=== PATIENT | male | born 1990 | race Two or more races ===

== ENCOUNTER 2016-10-11 05:01 | Day surgery (SDC) | payer BC, OTHER ==
[2016-10-11] MEDS ORDERED: PREGABALIN 150 MG CAP PO ONE (06:00)
[2016-10-11] MEDS ORDERED: ACETAMINOPHEN 500 MG TAB PO ONE (06:00)
[2016-10-11] MEDS ORDERED: CLINDAMYCIN 900 MG/DEXTROSE 50 ML IV ONE (06:00)
[2016-10-11] MEDS ORDERED: LIDOCAINE 1% 5 ML SDV ONE (06:10)
[2016-10-11] MEDS ORDERED: BUPIVACAINE/EPI 0.25% 30 ML SDV ONE (06:50)
[2016-10-11] MEDS ORDERED: EPINEPHrine 30 MG/30 ML MDV ONE (06:51)
[2016-10-11] MEDS ORDERED: MIDAZOLAM 2 MG/2 ML VIAL ONE (07:02)
[2016-10-11] MEDS ORDERED: fentaNYL 250 MCG/5 ML INJ ONE (07:07)
[2016-10-11] MEDS ORDERED: PROPOFOL 200 MG/20 ML VIAL ONE (07:07)
[2016-10-11] MEDS ORDERED: PROPOFOL/EMULSION 500 MG/50 ML BOTTLE IV ONE ×2 (07:07→08:25)
[2016-10-11] MEDS ORDERED: LIDOCAINE 2% 5 ML SDV ONE (07:10)
[2016-10-11] MEDS ORDERED: DEXAMETHASONE 4 MG/ML VIAL ONE (07:52)
[2016-10-11] MEDS ORDERED: ONDANSETRON 4 MG/2 ML VIAL ONE ×2 (07:52→12:01)
[2016-10-11] MEDS ORDERED: METOPROLOL TARTRATE 5 MG/5 ML INJ ONE (08:17)
[2016-10-11] MEDS ORDERED: LABETALOL HCL 5 MG/ML 20 ML MDV ONE (08:25)
[2016-10-11] MEDS ORDERED: fentaNYL 100 MCG/2 ML INJ ONE (09:19)
[2016-10-11] MEDS ORDERED: PROMETHAZINE HCL 25 MG/ML INJ ONE (12:37)
== END 2016-10-11 14:50 | disposition home or self-care (01) ==
LOC: FSGY 05:01
PROVIDERS: ATTEND Orthopaedic Surgery Sports Medicine
PROC: 0SQ94ZZ Repair Right Hip Joint, Percutaneous Endoscopic Approach (ICD-10-PCS; principal; 2016-10-11 07:20)
DX: M24.151 Other articular cartilage disorders, right hip (principal); Z87.440 Personal history of urinary (tract) infections; K21.9 Gastro-esophageal reflux disease without esophagitis; J45.909 Unspecified asthma, uncomplicated
CPT/HCPCS: 29916; 76001; C1769; C1713; J1100; J2250; J2405; J2550; J2704; J3010; J3490

== ENCOUNTER 2018-06-08 09:46 | Day surgery (SDC) | payer BC, OTHER ==
--- NOTE | 2018-06-07 21:44 | PDGENHP ---
History and Physical - Chief Complaint RIGHT HIP PAIN - History of Present Illness Diagnosis: 1. 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 I have enjoyed meeting him.~Efraín~lives in [place].~~Brieis unemployed, he had to withdraw from [employer] because of right hip pain.~~He~is single;~he~ has no~children. ~Brieenjoys hunting, fishing, and hiking. Justin's~right~hip pain started in October 2014 after lifting weights, subsequently~ developing~testicular pain and constipation. ~He was seen~several urologists~ and a~spine surgeons for diagnosis. ~He ended up seeing a pelvic specialist at and he was given a diagnostic right hip injection that relieved his pain. ~ He had an~MRI which showed labral tear.~~He had ~no~recalled trauma or injury, and with no~previous complaints. Briedoes not have~a known history of hip dysplasia. Presentation today is of~posterior, lateral,~groin~right~hip pain. ~The hip~ does not~wake him~at night and does~click and catch on him. Sitting~can be uncomfortable~for him.~Briedoes not~report suffering from lower back pain episodes. Briehas~participated in physical therapy for a year finishing in February 2016~and has~tried other conservative measures including hip injection~(June 2016 immediate~100%~pain relief for 5 hrs), dry needling, chiropractic treatments and massage therapy.~He~has not~received sufficient symptomatic improvement. Briehas~utilized medication for pain management, including NSAID.~Briehas used medication for 1.5 years. Briedenies issues with the left~hip. ~ Bireunderstands that he~has a hip and pelvis problem which should be researched and wishes to get a better understanding of his~hip status, followed by an establishment of a treatment strategy, hoping he~would be able to get back to his~well being active life. History: Past medical history:~~ Migraine headaches Relevant familial history:~Dad: CAD, Mother: cancer Past surgical history:~ No. Surgery 1 Eye surgery Briehas never received general anesthesia. I have reviewed, verified and agree with the past medical, surgical, family and social history. Current Medications:~has a current medication list which includes the following prescription(s): amitriptyline, gabapentin, ibuprofen, linaclotide, propranolol , propranolol, sulfamethoxazole-trimethoprim, sumatriptan succinate, tamsulosin , and tizanidine. ALLERGIES:~is allergic to augmentin [amoxicillin-pot clavulanate] and erythromycin. Objective: Physical Examination: Brieis 5~feet 9~inches tall and weighs 170~Lbs. Justin~is AAO x3; he~is well- nourished, in NAD. Skin is warm and dry. ~Breathing is non-labored. ~CV with RRR by pulse. Abdomen is soft, NTND. Currently,~he~walks with a normal~gait. Trendelenburg sign is~negative~and proprioception is reduced,~both~sides ( L > R ). He~presents with no~signs of joint laxity. Beightons Score:~0 ~ Lower spine examination is~negative~for sciatic or femoral nerve irritation with negative~SLR &~femoral stretch tests. Range of motion of the spine is normal~for flexion, extension, and rotations, with no~associated pain. Strength, Sensation and pulses are~normal -~bilaterally Ankles and knees exams are~normal~and no~mal-alignment is evident. He~has no leg length discrepancy. Thigh circumference is~symmetric~with no evidence for muscle atrophy~on both~ sides. Hip ROM (degrees): FL ER At 90~hip FL IR At 90~hip FL AB AD EX IR Neutral hip ER Neutral hip R 95 45 20 45 15 10 50 45 L 90 45 20 45 5 10 50 30 Specific hip and pelvis tests: Quadrant SOM Roll Add. Longus R +++ +++~( Posterior) + + L Negative ++~( Posterior) Negative + Glut. Med ITB Pos. Imp R Negative 5/5 strength Negative 5/5 strength Negative L Negative 5/5 strength Negative 5/5 strength +++ Squeeze test measured~strong Bony Symphysis pubis is~pain free~to touch while concentric activity of the rectus abdominis, does not~produce pain at its insertion. Ilio Psos specific tests are~positive for pain during cycling for~both hips~and remarkable for painful snap~( R > L ). HF has~pain on~the right hip. Anterior~capsule tenderness on the right. Greater trochanteric burse is~painful~on the right hip. Piriformis tests: FAIR is~negative,~with no~local signs of neuritis related to sciatic nerve. SIJs examination is~produces pain on~right side~with normal~SOM in relation and local tenderness. Hamstrings tests are~negative~functional contraction and negative~tendinopathy both hips. On a daily basis, the following percentages reflect~Justin's overall total pain: Deep hip:~100% Imaging: Radiology studies which I have personally reviewed, analyzed and measured are below: XR: AP of the hip and pelvis: Performed in a~good~technique Coccyx to pubic symphysis distance: 1.0 CM 15~caudal [place] Lines are~preserved. Minimal~Pathological signs are seen in the Symphysis Pubis. Minimal~Pathological signs are seen at the Ischial tuberosity. ~ Specific measurements show: NSA~ LCE Sourcil~Angle Sharp's angle Lat. Cam Lat. Pincer C.Over~sign Head~Coverage % ATDmm R N 42 -2 36 + + - N 8.6 L N 38 -1 39 + + - N 8.9 Pos. wall sign ISS NAD ~~Dysplasia Comments R Negative Negative 17.6~mm Negative L Negative Negative 16.3~mm Negative Sclerosis Sup. Lat. OA Cysts Joint Space-WBZ Joint Space-Medial R Negative Negative Negative 2.4~mm 2.6~mm L Negative Negative Negative 2.4~mm 2.7~mm X Table lateral: Anterior cam lesion is~seen~on both hips. Alpha Angle: ~ Right~64~dergrees Left~62~degrees MRI shows:~Right labral tear, no bone edema, cartilage is adequate Impression and plan:Mai Anderson~is a 28 y.o.~active male~suffering from symptomatic right~hip pain due to Right Femoroacetabular impingement Mixed Pincer dominant~causing significant disability to him~and altering his~sport and life activities. Physical examination, imaging, and~his~story correspond with the diagnosis mentioned above. I explained that femoroacetabular impingement (RASHIDA) arises due to a bony or soft tissue conflict between the femur (ball) and acetabulum (socket) caused by an abnormality in the shape of the hip joint. Over time, repetitive impingement can result in damage to the labrum and adjacent surface cartilage within the socket, ultimately giving rise to progressive osteoarthritis of the hip. I explained that although a labral tear can be a source of pain, it is rarely the root of the problem and typically occurs secondary to an underlying abnormality in the shape and mechanics of the hip joint. ~ I reviewed conservative treatment options for RASHIDA including activity modification to avoid positions of impingement, physical therapy, non-steroidal anti-inflammatory medications, and various injections (corticosteroid and PRP) aimed at reducing inflammation in the hip joint or/and preventing dynamic impingement. PRP injections may promote healing and reduce symptoms in certain cases but it will not repair chronically damaged tissue. Although these measures may help to buy time and reduce current level of symptoms, they are not a definitive solution to the problem given the underlying abnormality in the shape of the hip joint. Patients who have failed conservative management and continue to experience symptoms are candidates for hip arthroscopy, a minimally invasive surgery that can definitively address the underlying problem. Hip arthroscopy typically includes treating the labrum with either repair or reconstruction of the torn labrum; as well as addressing the underlying abnormalities by restoring the normal shape to the hip joint. ~If the cartilage is damaged a Microfracture surgical procedure may also be necessary to help stimulate the growth of fibrocartilage. ~If a patient requires a labral reconstruction or a Microfracture, the initial rehabilitation from the surgery may take longer, but the group home results are typically favorable. I reviewed the technical aspects of hip arthroscopy including risks, benefits, and expected course of recovery.~Justin~understands that hip arthroscopy is a minimally invasive outpatient procedure carried out through small incisions on the outer aspect of the hip joint. During surgery, the labral tear will be identified and either repaired or reconstructed~using bone anchors and suture material. Additionally, any excessive bone will be removed with a high-speed ruddy to reshape the hip joint and restore normal anatomy. Risks include infection, bleeding, injury to nearby nerves or vessels, stiffness, persistent pain, instability, venous thromboembolic disease, and traction related complications including temporary foot numbness. Rarely, revision surgery may be required to address these problems. Overall recovery takes approximately 4~ 8~months depending on the extent of damage and degree of repair. In the event that the labral tissue quality is inadequate for successful repair and healing,~JustinMaiunderstands that a labral reconstruction will be performed. This procedure entails placing a cadaver tissue graft within the hip joint and stabilizing it with bone anchors to build a new labrum. The overall recovery time for labral reconstruction is similar to that of labral repair, although the surgical procedure takes longer to perform. Briewill review the info presented. In order to obtain more detailed information regarding the alignment, orientation, and shape of the bony hip and pelvis I will order a CT scan to be performed. The results of the CT scan, including femoral torsion and acetabular version measured values and 3D images, will aid me in deciding on the best treatment strategy and surgical pre-planning. Briewill contact us if he~wishes to pursue further treatment in the future. Brieis happy with this plan. I have also supplied~him~with handouts, outlining the expected surgical treatment and rehab involved. I wish~Brieall the best, ~~ Martin Jensen, PAC History Information - Allergies/Home Medication List Allergies/Adverse Reactions: No Known Allergies Allergy (Verified 09/09/16 11:23) Home Medications: Advil TID 09/09/16 [Last Taken 10/04/16] Herbals/Supplements -Info Only DAILY 05/07/18 [Last Taken Unknown] Olanzapine HS 05/07/18 [Last Taken Unknown] I have personally reviewed and updated: medical history - Social History Smoking Status: Never smoked Review of Systems Review of Systems: Physical Exam Physical Exam:
[2018-06-08] MEDS ORDERED: ceFAZolin 2 GM/DEXTROSE 100 ML IV ONE (09:54)
[2018-06-08] MEDS ORDERED: PREGABALIN 150 MG CAP PO ONE (09:54)
[2018-06-08] MEDS ORDERED: ACETAMINOPHEN 500 MG TAB PO ONE (09:54)
[2018-06-08] MEDS ORDERED: LR 1,000 ML IV ONE (09:56)
[2018-06-08] MEDS ORDERED: BUPIVACAINE 0.25% 30 ML SDV ONE (10:27)
[2018-06-08] MEDS ORDERED: MIDAZOLAM 2 MG/2 ML VIAL IVP ONE (10:59)
[2018-06-08] MEDS ORDERED: SCOPOLAMINE HYDROBROMIDE 1 MG/3 DAYS PATCH TD ONE (10:59)
[2018-06-08] MEDS ORDERED: SCOPOLAMINE HYDROBROMIDE 1 MG/3 DAYS PATCH TD SCH (11:00)
[2018-06-08] MEDS ORDERED: MIDAZOLAM 2 MG/2 ML VIAL ONE (11:02)
--- NOTE | 2018-06-08 11:02 | PDANEPAE ---
ANE History of Present Illness 28 year old with right hip RASHIDA ANE Past Medical History - Cardiovascular History Hx Hypertension: No Hx Arrhythmias: No Hx Chest Pain: No Hx Coronary Artery / Peripheral Vascular Disease: No Hx CHF / Valvular Disease: No Hx Palpitations: No - Pulmonary History Hx COPD: No Hx Asthma/Reactive Airway Disease: No Hx Recent Upper Respiratory Infection: No Hx Oxygen in Use at Home: No Hx Sleep Apnea: No Sleep Apnea Screening Result - Last Documented: Negative Pulmonary History Comment: MINOR ASTHMA- DOESN'T USE INHALER - Neurologic History Hx Cerebrovascular Accident: No Hx Seizures: No Hx Dementia: No Neurologic History Comment: MIGRAINES MANAGED WELL WITH MEDICATION - Endocrine History Hx Diabetes: No - Renal History Hx Renal Disorders: Yes Renal History Comment: INTERMITTENT BLADDER TROUBLE ASSOSCIATED WITH HIP. HX OF UTI - Liver History Hx Hepatic Disorders: No - Neurological & Psychiatric Hx Hx Neurological and Psychiatric Disorders: No - Cancer History Hx Cancer: No - Congenital Disorder History Hx Congenital Disorders: Yes Congenital History Comment: RT HIP - GI History Hx Gastrointestinal Disorders: Yes Gastrointestinal History Comment: INTERMITTENT REFLUX TREATS WITH TUMS. - Other Health History Other Health History: ACETABULAR IMPINGEMENT AND LABRAL TEAR ON THE RT. SUPER DRY SKIN- GENETICALLY - Chronic Pain History Chronic Pain: Yes (RIGHT HIP) - Surgical History Prior Surgeries: RT HIP FEMOROPLASTY/LABRAL REPAIR,CAM RESECTION 09/2016. WISDOM TEETH. PRK SURGERY ON BILATERAL EYES. EGD X1 ANE Review of Systems Review of systems is: negative Review of Systems: - Exercise capacity METS (RN): 4 METS ANE Patient History - Allergies Allergies/Adverse Reactions: amoxicillin [From Augmentin] Allergy (Mild, Verified 06/08/18 10:44) Abdominal Pain clavulanic acid [From Augmentin] Allergy (Mild, Verified 06/08/18 10:44) Abdominal Pain erythromycin base [From Erythrocin] Allergy (Mild, Verified 06/08/18 10:44) Abdominal Pain sulfamethoxazole [From Bactrim] Allergy (Mild, Verified 06/08/18 10:44) trimethoprim [From Bactrim] Allergy (Mild, Verified 06/08/18 10:43) - Home Medications Home Medications: Advil TID 09/09/16 [Last Taken 06/01/18] Herbals/Supplements -Info Only DAILY 05/07/18 [Last Taken 06/01/18] Olanzapine HS 05/07/18 [Last Taken 06/07/18] - NPO status NPO Since - Liquids (Date): 06/08/18 NPO Since - Liquids (Time): 06:45 NPO Since - Solids (Date): 06/07/18 NPO Since - Solids (Time): 21:30 - Smoking Hx Smoking Status: Never smoked - Family Anes Hx Family Hx Anesthesia Complications: NONE ANE Labs/Vital Signs - Vital Signs Blood Pressure: 162/90 Heart Rate: 98 Respiratory Rate: 15 O2 Sat (%): 98 Height: 175.26 cm Weight: 104.326 kg ANE Physical Exam - Airway Neck exam: FROM Mallampati Score: Class 1 Mouth exam: normal dental/mouth exam - Pulmonary Pulmonary: no respiratory distress - Cardiovascular Cardiovascular: regular rate and rhythym - ASA Status ASA Status: II ANE Anesthesia Plan Anesthesia Plan: general endotracheal anesthesia
[2018-06-08] MEDS ORDERED: fentaNYL 100 MCG/2 ML INJ ONE (11:12)
[2018-06-08] MEDS ORDERED: PROPOFOL 200 MG/20 ML VIAL ONE (11:13)
[2018-06-08] MEDS ORDERED: fentaNYL 250 MCG/5 ML INJ ONE (12:05)
[2018-06-08] MEDS ORDERED: HYDROCODONE/APAP 5/325 TAB PO PRN (14:02)
[2018-06-08] MEDS ORDERED: ONDANSETRON 4 MG/2 ML VIAL IVP PRN (14:02)
[2018-06-08] MEDS ORDERED: fentaNYL 100 MCG/2 ML INJ IVP PRN (14:02)
[2018-06-08] MEDS ORDERED: NALOXONE HCL 0.4 MG/ML INJ IVP PRN (14:02)
[2018-06-08] MEDS ORDERED: oxyCODONE IR 5 MG TAB PO PRN (14:02)
[2018-06-08] MEDS ORDERED: HYDROmorphONE/DILAUDID 2 MG/ML INJ IVP PRN (14:02)
[2018-06-08] MEDS ORDERED: PROMETHAZINE HCL 25 MG/ML INJ IVP PRN (14:02)
--- NOTE | 2018-06-08 14:03 | POSTANESTH ---
Post Anesthetic Evaluation Cardiovascular Status: Normal, Stable Respiratory Status: Normal, Stable Level of Consciousness/Mental Status: Can Participate in Eval Pain Control: Adequate, Prn Tx Ordered Nausea/Vomiting Control: Adequate, Prn Tx Ordered Complications Possibly Related to Anesthesia: None Noted
[2018-06-08] MEDS ORDERED: PROMETHAZINE HCL 25 MG/ML INJ ONE (14:07)
[2018-06-08 15:53] VITALS: BP 145/89
--- NOTE | 2018-06-08 15:58 | POSTOPPROG ---
Post Op Note Date of Operation: 06/08/18 Surgeon: Blaise Clancy Chemical Engraver: Dr. Lockett Anesthesia: GET(General Endotracheal) Pre-op Diagnosis: Right RASHIDA Post-op Diagnosis: Right RASHIDA Procedure: Right Hip Arthroscopy Inf/Abcess present in the surg proc area at time of surgery?: No
[2018-06-11] MEDS ORDERED: PATCH REMOVAL 1 EA PATCH TD SCH (11:00)
== END 2018-06-08 15:40 | disposition home or self-care (01) ==
LOC: FSGY 09:46
PROVIDERS: ATTEND Orthopaedic Surgery Sports Medicine
PROC: 0SQ94ZZ Repair Right Hip Joint, Percutaneous Endoscopic Approach (ICD-10-PCS; principal; 2018-06-08 11:30)
PROC: 0SB94ZZ Excision of Right Hip Joint, Percutaneous Endoscopic Approach (ICD-10-PCS; principal; 2018-06-08 11:30)
PROC: BQ10YZZ Fluoroscopy of Right Hip using Other Contrast (ICD-10-PCS; 2018-06-08 11:30)
DX: M25.851 Other specified joint disorders, right hip (principal); M65.88 Other synovitis and tenosynovitis, other site; G43.909 Migraine, unspecified, not intractable, without status migrainosus; Z87.440 Personal history of urinary (tract) infections; Z82.49 Family history of ischemic heart disease and other diseases of the circulatory system
CPT/HCPCS: C1713; J0690; J2250; J2550; J2704; J3010